=== PATIENT | male | born 1950 | race Caucasian/White ===

== ENCOUNTER 2024-09-03 08:30 | Day surgery (SDC) | payer MEDICARE, SELFPAY ==
[2024-08-30 09:30] VITALS: BMI 26.7
--- NOTE | 2024-08-30 15:08 | HO.ANESPROP2 ---
Documented by User: Roopa Sneed NP 08/30/24 15:09 HPI - Anesthesia Eval Consult details Narrative: 74yo M for Right Cataract Extraction IOL Insertion No previous cataract on record PMFSH Active Problems Active Problems: All Active Problems Urticaria (Acute) Otitis media (Acute) Past Medical History Medical History Cataracts, bilateral ROCCO (obstructive sleep apnea) History of prostate cancer Lung nodule Hepatic steatosis History of colon polyps Surgical History Surgical History Hx of repair of rotator cuff Hx of colonoscopy Hx of prostatectomy (~2020) Social History Social History Are you a primary career development coordinator/teacher to a significant other at home: No Do you presently have visiting nurse or other home services: No Patient Tobacco Use Status: Former Tobacco user Tobacco use type: Cigarette Years Smoked: 2 Smoked in Last 30 Days: No Use of substances other than those prescribed or required for medical reasons: No Have you been hit, kicked, punched, or otherwise hurt by someone within the past year? If so, by whom?: No Are you DNR?: No Advance Directives: No Advance Directives Information Provided: Yes Recently lost weight without trying: No How much weight loss: Not applicable Eating poorly because of decreased appetite: No Nutrition screen score: 0 Nutrition Risks: No Nutritional Risk Poor oral hygiene: Yes (Upper partials) Meds Allergies Allergy/AdvReac Type Severity Reaction Status Date / Time ibuprofen [From ADVIL] Allergy Unknown GI UPSET Verified 09/03/24 09:03 pseudoephedrine Allergy Unknown HEART Verified 09/03/24 09:03 [From SUDAFED] PALPITATIONS naproxen [Aleve] AdvReac Unknown stomach Verified 09/03/24 09:03 upset Home Medications ?Medication ?Instructions ?Recorded ?Confirmed ?Last Taken ?Type gabapentin 300 mg capsule 300 mg PO DAILY 08/30/24 09/03/24 Unknown History loratadine 10 mg tablet (Claritin) 10 mg PO DAILY 08/30/24 09/03/24 Unknown History multivitamin 1 tab PO DAILY 08/30/24 09/03/24 Unknown History tadalafil 20 mg tablet (Cialis) 20 mg PO DAILY PRN Sexual Activity 08/30/24 09/03/24 Unknown History Exam Height,Weight and Vital Signs: Height 5 ft 10.28 in Weight 85 kg Assessment and Plan Assessment Anesthesia Assessment: Chart Reviewed Documented by User: Giovanna Quispe MD 09/03/24 10:56 PMFSH Past Medical History Medical History Cataracts, bilateral ROCCO (obstructive sleep apnea) History of prostate cancer Lung nodule Hepatic steatosis History of colon polyps Family History Family history of problems with anesthesia: No Surgical History Surgical History Hx of repair of rotator cuff Hx of colonoscopy Hx of prostatectomy (~2020) History of Problems with Anesthesia: No Social History Social History Are you a primary career development coordinator/teacher to a significant other at home: No Do you presently have visiting nurse or other home services: No Patient Tobacco Use Status: Former Tobacco user Tobacco use type: Cigarette Years Smoked: 2 Smoked in Last 30 Days: No Use of substances other than those prescribed or required for medical reasons: No Have you been hit, kicked, punched, or otherwise hurt by someone within the past year? If so, by whom?: No Are you DNR?: No Advance Directives: No Advance Directives Information Provided: Yes Recently lost weight without trying: No How much weight loss: Not applicable Eating poorly because of decreased appetite: No Nutrition screen score: 0 Nutrition Risks: No Nutritional Risk Poor oral hygiene: Yes (Upper partials) Meds Allergies Allergy/AdvReac Type Severity Reaction Status Date / Time ibuprofen [From ADVIL] Allergy Unknown GI UPSET Verified 09/03/24 09:03 pseudoephedrine Allergy Unknown HEART Verified 09/03/24 09:03 [From SUDAFED] PALPITATIONS naproxen [Aleve] AdvReac Unknown stomach Verified 09/03/24 09:03 upset Home Medications ?Medication ?Instructions ?Recorded ?Confirmed ?Last Taken ?Type gabapentin 300 mg capsule 300 mg PO DAILY 08/30/24 09/03/24 Unknown History loratadine 10 mg tablet (Claritin) 10 mg PO DAILY 08/30/24 09/03/24 Unknown History multivitamin 1 tab PO DAILY 08/30/24 09/03/24 Unknown History tadalafil 20 mg tablet (Cialis) 20 mg PO DAILY PRN Sexual Activity 08/30/24 09/03/24 Unknown History Exam Airway Mallampati Class: II TM Dist: >3cm Neck ROM: Full Heart: rrr Lungs: cta Assessment and Plan Assessment Anesthesia Assessment: Anesthesia Plan Discussed Final Anesthetic Review Family History of Problems with Anesthesia: No History of Problems with Anesthesia: No NPO: Yes ASA Class: III Final Preanesthetic Review: No Changes in Pt Med Stat, Meds/Allgs Chart Reviewed and Consent Obtained/Reviewed Patient Risk: Low Procedure Risk: Low Anesthetic Plan Anesthetic Plan: MAC: Disposition: Standard PACU
[2024-09-03 09:04] VITALS: BP 145/72; PULSE 74; RESP 16; TEMP 36.2; O2SAT 98; BMI 25.0
[2024-09-03] MEDS: Tetracaine HCl/PF 0.5% Oph Sol 4 ML DROPS 1 DROP EYE-RIGHT (09:11)
[2024-09-03] MEDS: Cyclopentolate 1 % Ophth Sol 2 ML DRPBTL 1 DROP EYE-RIGHT ×3 (09:12→09:28)
[2024-09-03] MEDS: Tropicamide 1 % Ophth Sol 3 ML BTL 1 DROP EYE-RIGHT ×3 (09:14→09:30)
[2024-09-03] MEDS: Ketorolac Tromethamine 0.5% Op 10 ML DROPS 1 DROP EYE-RIGHT ×3 (09:16→09:32)
[2024-09-03] MEDS: Phenylephrine HCL 2.5% Oph SoL 2 ML BOTTLE 1 DROP EYE-RIGHT ×3 (09:18→09:34)
[2024-09-03] MEDS: Lactated Ringers 500 ML 50 ML IV (09:18)
--- NOTE | 2024-09-03 10:41 | MHC.SHP ---
Pre-Procedural Eval Section A - 24 Hr Update-Section A only Date of Service: 09/03/24 The patient is an INPATIENT: No Changes since office visit: No Cold of Flu in the past 2 weeks, No New Medical Problems, No Changes in Medication and No Patient answered all questions The patient has been examined within 24 hours of the surgical procedure. The History & Physical has been completed within 30 days and I have reviewed it.: Yes Section B - Complete if H&P > 30 days Chief Complaint: Age-related nuclear cataract, right eye Allergies: Allergies Allergy/AdvReac Type Severity Reaction Status Date / Time ibuprofen [From ADVIL] Allergy Unknown GI UPSET Verified 09/03/24 09:03 pseudoephedrine Allergy Unknown HEART Verified 09/03/24 09:03 [From SUDAFED] PALPITATIONS naproxen [Aleve] AdvReac Unknown stomach Verified 09/03/24 09:03 upset Plan Diagnosis/Plan: Unchanged I have reviewed the history and physical and performed a pertinent physical examination on my patient. No changes have occurred unless specified. Time Spent With Patient Time: Total time managing care of this patient today ____ minutes.
--- NOTE | 2024-09-03 10:42 | P.PCNO_ITS ---
Ophthalmology Procedure Procedure Date of Service: 09/03/24 Ophthalmology Viscoelastic: Healon Duet Dual Pack Pro Ophthalmology Lenses: IOL Acrysof MP - MA60AC (10) Procedure Notes: PREOPERATIVE DIAGNOSIS: Decreased visual acuity right eye secondary to cataract POSTOPERATIVE DIAGNOSIS: Same PROCEDURE: Right cataract extraction with intraocular lens insertion SURGEON: Micky Juarez M.D. ANESTHESIA: Topical/MAC ESTIMATED BLOOD LOSS: None COMPLICATIONS: None After obtaining informed consent, the patient was brought to the operating room suite and placed in the supine position. After adequate sedation per anesthesia, topical drops of Tetracaine were given to the right eye. The eye was then prepped and draped in the usual sterile fashion. The operating room microscope was then positioned over the operative eye and a lid speculum placed. A paracentesis was created. Viscoelastic was then instilled into the anterior chamber. A three plane incision was then created temporally, utilizing a 2.85 mm keratome. Capsulotomy forceps were then utilized to create a circular tear capsulotomy. Hydrodissection and hydrodelineation were carried out until adequate mobilization of the nucleus occurred. Phacoemulsification was then utilized to remove the dense central nucl eus followed by removal of the cortical material utilizing the automated aspiration irrigation unit. Viscoelastic was instilled into the posterior capsular bag followed by placement of a posterior chamber intraocular lens without difficulty. The residual Viscoelastic was then removed utilizing the automated IA machine. The wound was checked and found to be watertight. The patient tolerated the procedure well and the lid speculum was removed. Intracameral injection of Vigamox 0.1 mL followed by a subtenon injection of Kenalog-40 0.2 mL were administered. The patient will be seen in the a.m.
[2024-09-03 11:08] VITALS: BP 132/64; PULSE 71; RESP 17; TEMP 36.1; O2SAT 96
== END 2024-09-03 11:18 | disposition home or self-care (01) ==
PROVIDERS: PCP Family Medicine; Visit Provider Ophthalmology
PROC: (CPT 66985; principal; 2024-09-03 10:30)
DX: H25.11 Age-related nuclear cataract, right eye (principal); H54.7 Unspecified visual loss; Z85.46 Personal history of malignant neoplasm of prostate; R91.1 Solitary pulmonary nodule; G47.33 Obstructive sleep apnea (adult) (pediatric); K76.0 Fatty (change of) liver, not elsewhere classified; Z98.890 Other specified postprocedural states; Z87.891 Personal history of nicotine dependence
CPT/HCPCS: 66984; J2250; J3301; V2630

== ENCOUNTER 2024-09-17 06:48 | Day surgery (SDC) | payer MEDICARE, SELFPAY ==
[2024-09-04 14:22] VITALS: BMI 25.0
[2024-09-12 15:11] VITALS: BMI 25.0
--- NOTE | 2024-09-13 13:48 | HO.ANESPROP2 ---
Documented by User: Roopa Sneed NP 09/13/24 13:48 HPI - Anesthesia Eval Consult details Narrative: 74yo M for Left Cataract Extraction IOL Insertion Right eye 09/03/24: Midaz 2 PMFSH Active Problems Active Problems: All Active Problems Urticaria (Acute) Otitis media (Acute) Past Medical History Medical History Cataracts, bilateral ROCCO (obstructive sleep apnea) History of prostate cancer Lung nodule Hepatic steatosis History of colon polyps Family History Family history of problems with anesthesia: No Surgical History Surgical History Hx of right cataract extraction (09/03/24) Hx of repair of rotator cuff Hx of colonoscopy Hx of prostatectomy (~2020) History of Problems with Anesthesia: No Social History Social History Are you a primary career development counselor to a significant other at home: No Do you presently have visiting nurse or other home services: No Patient Tobacco Use Status: Former Tobacco user Tobacco use type: Cigarette Years Smoked: 2 Smoked in Last 30 Days: No Use of substances other than those prescribed or required for medical reasons: No Are you DNR?: No Advance Directives: No Advance Directives Information Provided: Yes Advance Directives on File: No Meds Allergies Allergy/AdvReac Type Severity Reaction Status Date / Time ibuprofen [From ADVIL] Allergy Unknown GI UPSET Verified 09/17/24 07:04 pseudoephedrine Allergy Unknown HEART Verified 09/17/24 07:04 [From SUDAFED] PALPITATIONS naproxen [Aleve] AdvReac Unknown stomach Verified 09/17/24 07:04 upset Home Medications ?Medication ?Instructions ?Recorded ?Confirmed ?Last Taken ?Type gabapentin 300 mg capsule 300 mg PO DAILY 08/30/24 09/17/24 Unknown History loratadine 10 mg tablet (Claritin) 10 mg PO DAILY 08/30/24 09/17/24 Unknown History multivitamin 1 tab PO DAILY 08/30/24 09/17/24 Unknown History tadalafil 20 mg tablet (Cialis) 20 mg PO DAILY PRN Sexual Activity 08/30/24 09/17/24 Unknown History Exam Height,Weight and Vital Signs: Height 6 ft Weight 83.7 kg Assessment and Plan Assessment Anesthesia Assessment: Chart Reviewed Final Anesthetic Review Family History of Problems with Anesthesia: No History of Problems with Anesthesia: No Documented by User: Giovanna Quispe MD 09/17/24 08:02 PMFSH Past Medical History Medical History Cataracts, bilateral ROCCO (obstructive sleep apnea) History of prostate cancer Lung nodule Hepatic steatosis History of colon polyps Surgical History Surgical History Hx of right cataract extraction (09/03/24) Hx of repair of rotator cuff Hx of colonoscopy Hx of prostatectomy (~2020) Social History Social History Are you a primary career development counselor to a significant other at home: No Do you presently have visiting nurse or other home services: No Patient Tobacco Use Status: Former Tobacco user Tobacco use type: Cigarette Years Smoked: 2 Smoked in Last 30 Days: No Use of substances other than those prescribed or required for medical reasons: No Are you DNR?: No Advance Directives: No Advance Directives Information Provided: Yes Advance Directives on File: No Meds Allergies Allergy/AdvReac Type Severity Reaction Status Date / Time ibuprofen [From ADVIL] Allergy Unknown GI UPSET Verified 09/17/24 07:04 pseudoephedrine Allergy Unknown HEART Verified 09/17/24 07:04 [From SUDAFED] PALPITATIONS naproxen [Aleve] AdvReac Unknown stomach Verified 09/17/24 07:04 upset Home Medications ?Medication ?Instructions ?Recorded ?Confirmed ?Last Taken ?Type gabapentin 300 mg capsule 300 mg PO DAILY 08/30/24 09/17/24 Unknown History loratadine 10 mg tablet (Claritin) 10 mg PO DAILY 08/30/24 09/17/24 Unknown History multivitamin 1 tab PO DAILY 08/30/24 09/17/24 Unknown History tadalafil 20 mg tablet (Cialis) 20 mg PO DAILY PRN Sexual Activity 08/30/24 09/17/24 Unknown History Exam Airway Mallampati Class: II TM Dist: >3cm Neck ROM: Full Heart: rrr Lungs: cta Assessment and Plan Assessment Anesthesia Assessment: Anesthesia Plan Discussed Final Anesthetic Review NPO: Yes ASA Class: II Final Preanesthetic Review: No Changes in Pt Med Stat, Meds/Allgs Chart Reviewed, Consent Obtained/Reviewed and Anes Risks/Benef Reviewed Patient Risk: Intermediate Procedure Risk: Low Anesthetic Plan Anesthetic Plan: MAC: Disposition: Standard PACU
[2024-09-17] MEDS: Tetracaine HCl/PF 0.5% Oph Sol 4 ML DROPS 1 DROP EYE-LEFT (07:05)
[2024-09-17] MEDS: Cyclopentolate 1 % Ophth Sol 2 ML DRPBTL 1 DROP EYE-LEFT ×3 (07:08→07:31)
[2024-09-17] MEDS: Ketorolac Tromethamine 0.5% Op 10 ML DROPS 1 DROP EYE-LEFT ×3 (07:10→07:34)
[2024-09-17] MEDS: Tropicamide 1 % Ophth Sol 3 ML BTL 1 DROP EYE-LEFT ×3 (07:15→07:37)
[2024-09-17] MEDS: Phenylephrine HCL 2.5% Oph SoL 2 ML BOTTLE 1 DROP EYE-LEFT ×3 (07:16→07:40)
[2024-09-17 07:18] VITALS: BP 155/72; PULSE 75; RESP 16; TEMP 36.3; O2SAT 98; BMI 24.4
[2024-09-17] MEDS: Lactated Ringers 500 ML 50 ML IV (07:31)
--- NOTE | 2024-09-17 07:51 | MHC.SHP ---
Pre-Procedural Eval Section A - 24 Hr Update-Section A only Date of Service: 09/17/24 The patient is an INPATIENT: No Changes since office visit: No Cold of Flu in the past 2 weeks, No New Medical Problems, No Changes in Medication and No Patient answered all questions The patient has been examined within 24 hours of the surgical procedure. The History & Physical has been completed within 30 days and I have reviewed it.: Yes Section B - Complete if H&P > 30 days Chief Complaint: Age-related nuclear cataract, left eye Allergies: Allergies Allergy/AdvReac Type Severity Reaction Status Date / Time ibuprofen [From ADVIL] Allergy Unknown GI UPSET Verified 09/17/24 07:04 pseudoephedrine Allergy Unknown HEART Verified 09/17/24 07:04 [From SUDAFED] PALPITATIONS naproxen [Aleve] AdvReac Unknown stomach Verified 09/17/24 07:04 upset Plan Diagnosis/Plan: Unchanged I have reviewed the history and physical and performed a pertinent physical examination on my patient. No changes have occurred unless specified. Time Spent With Patient Time: Total time managing care of this patient today ____ minutes.
--- NOTE | 2024-09-17 07:51 | HO.PNOPHT ---
Ophthalmology Procedure Procedure Date of Service: 09/17/24 Ophthalmology Viscoelastic: Healon Duet Dual Pack Pro Ophthalmology Lenses: IOL Acrysof MP - MA60AC (7) Procedure Notes: PREOPERATIVE DIAGNOSIS: Decreased visual acuity left eye secondary to cataract POSTOPERATIVE DIAGNOSIS: Same PROCEDURE: Left cataract extraction with intraocular lens insertion SURGEON: Micky Juarez M.D. ANESTHESIA: Topical/MAC ESTIMATED BLOOD LOSS: None COMPLICATIONS: None After obtaining informed consent, the patient was brought to the operation room suite and placed in the supine position. After adequate sedation per anesthesia, topical drops of Tetracaine were given to the left eye. The eye was then prepped and draped in the usual sterile fashion. The operating room microscope was then positioned over the operative eye and a lid speculum placed. A paracentesis was created. Viscoelastic was then instilled into the anterior chamber. A three plane incision was then created temporally, utilizing a 2.85 mm keratome. Capsulotomy forceps were then utilized to create a circular tear capsulotomy. Hydrodissection and hydrodelineation were carried out until adequate mobilization of the nucleus occurred. Phacoemulsification was then utilized to remove the dense central nucleus followed by removal of the cortical material utilizing the automated aspiration irrigation unit. Viscoat elastic was instilled into the posterior capsular bag followed by placement of a posterior chamber intraocular lens without difficulty. The residual Viscoat elastic was then removed utilizing the automated IA machine. The wound was check and found to be watertight. The patient tolerated the procedure well and the lid speculum was removed. Intracameral injection of Vigamox 0.1 mL followed by a subtenon injection of Kenalog-40 0.2 mL were administered. The patient will be seen in the a.m.
[2024-09-17 08:18] VITALS: BP 128/68; PULSE 67; RESP 18; TEMP 36.4; O2SAT 100
[2024-09-17 08:28] VITALS: BP 124/67; PULSE 70; RESP 20; TEMP 36.5; O2SAT 100
== END 2024-09-17 08:30 | disposition home or self-care (01) ==
PROVIDERS: PCP Family Medicine; Visit Provider Ophthalmology
PROC: (CPT 66985; principal; 2024-09-17 08:00)
DX: H25.12 Age-related nuclear cataract, left eye (principal); H52.4 Presbyopia; H44.23 Degenerative myopia, bilateral; H43.393 Other vitreous opacities, bilateral; H18.413 Arcus senilis, bilateral; G47.33 Obstructive sleep apnea (adult) (pediatric); Z85.46 Personal history of malignant neoplasm of prostate; Z79.899 Other long term (current) drug therapy; Z88.8 Allergy status to other drugs, medicaments and biological substances; Z87.891 Personal history of nicotine dependence
CPT/HCPCS: 66984; J2250; J3301; V2630